=== PATIENT | female | born 1950 | race Asian ===

== ENCOUNTER 2019-10-01 11:32 | Inpatient (IN) | payer MEDICARE, OTHER ==
[~2019-10-01] VITALS: Ht 154.9 cm; Wt 71.2 kg
[2019-10-01 14:50] VITALS: BP 133/74
--- NOTE | 2019-10-01 14:50 | NUR ---
tele marketing intelligence analyst: admission direct admit this 69 year old female pt from [facility] with dx: syncope, uti. pt came in for positive influenza at [facility] per report. pt awake, a/ox4; kedar speaking only. daughter here to translate. s/p fall with small hematoma to right parietal scalp area per ct head report, unable to feel lump/bump at this time. neuro check wnl. pupils perlla at 3mm. denies ocasio, dizziness, n/v or any discomfort at this time. pt able to ambulate with steady gait. oriented to room and surroundings. vss. in no apparent distress noted. will continue to monitor. Addendum: 10/01/19 at 1557 by SHARLENE SHOOK MANAGER OF CUSTOMER BILLING place pt on tele sr=[id number].
--- NOTE | 2019-10-01 15:30 | NUR ---
tele mainspring strip inspector: notes nica (acnp) at bedside talking to pt and daughter at this time.
--- NOTE | 2019-10-01 15:45 | NUR ---
m/s hr analyst: notes late lunch provided. instructed to call for assistance. will continue to monitor.
[2019-10-01 16:00] VITALS: BP 133/74
[2019-10-01] MEDS ORDERED: ACETAMINOPHEN 325 MG TABLET PO PRN (16:00)
[2019-10-01] MEDS ORDERED: MORPHINE SULFATE INJ 2 MG/ML DISP.SYRIN IV PRN (16:00)
[2019-10-01] MEDS ORDERED: HYDROCODONE/APAP 5/325MG 1 EACH TABLET PO PRN (16:00)
[2019-10-01] MEDS ORDERED: ZOLPIDEM TARTRATE 5 MG TABLET PO PRN (16:00)
[2019-10-01] MEDS ORDERED: MAG HYDROX/AL HYDROX/SIMETH 30 ML UDC PO PRN (16:00)
[2019-10-01] MEDS ORDERED: ONDANSETRON HCL/PF 4 MG/2 ML VIAL IVP PRN (16:00)
[2019-10-01] MEDS ORDERED: MAGNESIUM HYDROXIDE 30 ML UDC PO PRN (16:00)
[2019-10-01] MEDS ORDERED: CEFTRIAXONE 1 G in IV D5W 50 ML IV SCH (16:00)
--- NOTE | 2019-10-01 16:00 | NUR ---
tele hot box spotter: notes both nostril mrsa suirvellance collected and place in ref. called lab to citrus picker specimen.
[2019-10-01] MEDS: IV 1/2NS 1000 ML 1,000 ML IV PRN (16:40)
[2019-10-01] MEDS: OSELTAMIVIR PHOSPHATE 75 MG CAPSULE PO SCH (16:49)
--- NOTE | 2019-10-01 18:00 | NUR ---
m/s inspector coated fabrics: notes troponin drawn at this time. no c/o dizziness, ocasio, or any discomfort. tele remains sr. needs attended. instructed to call for assistance. will continue to monitor.
[2019-10-01] MEDS: ENOXAPARIN SODIUM 40 MG/0.4 ML DISP.SYRIN SQ SCH (18:03)
--- NOTE | 2019-10-01 19:00 | NUR ---
m/s rug underlay machine operator: notes 2 family member visiting at this time.
--- NOTE | 2019-10-01 19:20 | NUR ---
tele basketballs and footballs reverser: notes bedside report given to meghan (rn) for continuity of care.
--- NOTE | 2019-10-01 19:57 | NUR ---
RN NOTES RECEIVED PATIENT AWAKE, ALERT ORIENTED X3-4. NO SIGNS OF ACUTE DISTRESS, SAFETY MEASURES IN PLACE, ASPIRATION PRECAUTION EMPHASIZED, CALL LIGHT WITHIN EASY REACH. FAMILY MEMBERS AT BEDSIDE, DENIES ANY PAIN OR DISCOMFORT, IV MIDLINE ACCESS ON HER RIGHT UPPER ARM INTACT AND PATENT. ALL NEEDS ANTICIPATED, WILL CONTINUE TO MONITOR ACCORDINGLY. Addendum: 10/02/19 at 0538 by INDER JASON RN 10/02/191956 IV SITE ACCESS CORRECTION: RN NOTES RECEIVED PATIENT AWAKE, ALERT ORIENTED X3-4. NO SIGNS OF ACUTE DISTRESS, SAFETY MEASURES IN PLACE, ASPIRATION PRECAUTION EMPHASIZED, CALL LIGHT WITHIN EASY REACH. FAMILY MEMBERS AT BEDSIDE, DENIES ANY PAIN OR DISCOMFORT, IV ON HER LEFT WRIST INTACT AND PATENT IVF INFUSING WELL. . ALL NEEDS ANTICIPATED, WILL CONTINUE TO MONITOR ACCORDINGLY.
[2019-10-01 20:00] VITALS: BP 142/73
[2019-10-02] VITALS (8 sets, daily range): BP systolic 109–146; BP diastolic 64–76
--- NOTE | 2019-10-02 06:30 | NUR ---
RN NOTES ALL NEEDS ATTENDED AND MET ABLE TO REST AND SLEPT AT INTERVALS. SAFETY MEASURES IN PLACE, CALL LIGHT WITHIN EASY REACH, ISOLATION PRECAUTION MAINTAINED, ASPIRATION PRECAUTION EMPHASIZED, DENIES ANY PAIN AT THIS TIME, WILL ENDORSE TO AM NURSE FOR CONTINUITY OF CARE.
--- NOTE | 2019-10-02 07:34 | NUR ---
MS/RN NOTES RECEIVED PATIENT LYING ON BED AWAKE. ALERT AND ORIENTED X4. DENIES PAIN AT THIS TIME. NO SOB NOTED. IVF OF 1/2 NS 1L AT 75ML/HR ON AND INFUSING WELL. SAFETY MEASURES IN PLACE, CALL LIGHT WITHIN EASY REACH, ISOLATION PRECAUTION MAINTAINED, ASPIRATION PRECAUTION EMPHASIZED. WILL CONTINUE TO MONITOR.
--- NOTE | 2019-10-02 07:39 | NUR ---
MS/RN OPENING NOTES RECEIVED PATIENT LYING ON BED AWAKE. ALERT AND ORIENTED X4. DENIES PAIN AT THIS TIME. NO SOB NOTED. IVF OF NS 1L 125ML/HR ON AND INFUSING WELL. SAFETY MEASURES IN PLACE, CALL LIGHT WITHIN EASY REACH, BED IN LOWEST POSITION, SIDE RAILS UP X2. WILL CONTINUE TO MONITOR Addendum: 10/02/19 at 1605 by JACQUE FLOWER RN ERROR
[2019-10-02 07:41] LABS: BASOPHILS % (AUTO) 0.8 % (0.0-2.0); EOSINOPHILS % (AUTO) 1.6 % (0.0-6.0); HEMATOCRIT 39 % (33-45); HEMOGLOBIN 12.8 g/dL (11.5-14.8); LYMPHOCYTES # (AUTO) 1.6 /CMM (0.8-4.8); LYMPHOCYTES % (AUTO) 45.2 % (20.0-44.0); MEAN CORPUSCULAR HGB CONC 33 g/dl (31.0-36.0); MEAN CORPUSCULAR VOLUME 93 fL (82-100); MONOCYTES # (AUTO) 0.4 /CMM (0.1-1.30); MONOCYTES % (AUTO) 11.7 % (2.0-12.0); NEUTROPHILS # (AUTO) 1.4 /CMM (1.8-8.9); NEUTROPHILS % (AUTO) 40.7 % (43.0-81.0); PLATELET COUNT (AUTO) 170 /CMM (150-450); WHITE BLOOD COUNT (AUTO) 3.5 K/uL (4.3-11.0)
[2019-10-02] MEDS: PANTOPRAZOLE 40 MG TABLET.DR PO SCH (07:53)
[2019-10-02] MEDS: IV 1/2NS 1000 ML 1,000 ML IV PRN (07:55)
[2019-10-02 08:00] LABS: ALBUMIN 2.8 g/dL (3.4-5.0); BILIRUBIN,DIRECT 0.1 mg/dL (0.0-0.2); BILIRUBIN,TOTAL 0.1 mg/dL (0.2-1.0); CALCIUM, SERUM 7.9 mg/dL (8.5-10.1); CREATININE 0.8 mg/dL (0.6-1.3); MAGNESIUM 1.8 mg/dL (1.8-2.4); PHOSPHORUS 3.1 mg/dL (2.5-4.9); POTASSIUM 3.9 mmol/L (3.5-5.1); TOTAL PROTEIN, SERUM 7.1 g/dL (6.4-8.2)
[2019-10-02 08:03] LABS: THYROID STIMULATING HORMONE 5.545 uIU/mL (0.358-3.74)
[2019-10-02] MEDS: OSELTAMIVIR PHOSPHATE 75 MG CAPSULE PO SCH ×2 (09:14→17:55)
[2019-10-02] MEDS: CEFTRIAXONE 1 G in IV D5W 50 ML IV SCH (09:15)
[2019-10-02] MEDS ORDERED: IV 1/2NS 1000 ML 1,000 ML IV PRN (09:57)
--- NOTE | 2019-10-02 18:57 | NUR ---
MS/RN CLOSING NOTES PATIENT LYING ON THE BED COMFORTABLY. PATIENT IS ALERT AND ORIENTED X4. RESPIRATIONS EVEN AND UNLABORED WITH EQUAL RISE AND FALL OF CHEST. DENIES ANY PAIN OR DISCOMFORT AT THIS TIME. IV SITE TO THE LEFT WRIST # 20 PATENT AND INTACT. IVF OF NS 1L AT 75ML/HR ON AND INFUSING WELL. NO REDNESS, NO INFILTRATION PRESENT. SEEN AND EXAMINED BY MD WITH ORDERS MADE AND CARRIED OUT. ALL DUE MEDS WAS GIVEN ORDERED, NO ADVERSE REACTIONS. ALL NEEDS WAS ATTENDED. SAFETY PRECAUTION IN PLACED. BED IN LOWEST POSITION SIDE RAILS UP X2. CALL LIGHT WITH IN REACH. WILL ENDORSED TO PATTERN GENERATOR OPERATOR FOR. SUNDAY.
--- NOTE | 2019-10-02 19:55 | NUR ---
RN NOTES RECEIVED PATIENT AWAKE ALERT ORIENTED X4, NO ACUTE SIGNS OF DISTRESS, BREATHING EVEN AND UNLABORED, IV ACCESS INTACT AND PATENT, IVF INFUSING WELL. SAFETY MEASURES INPLACE, ASPIRATION PRECAUTION EMPHASIZED, CALL LIGHT WITHIN EASY REACH, WILL CONTINUE TO MONITOR ACCORDINGLY.
[2019-10-02] MEDS: ENOXAPARIN SODIUM 40 MG/0.4 ML DISP.SYRIN SQ SCH (21:08)
--- NOTE | 2019-10-03 07:31 | NUR ---
MS/RN OPENING NOTES RECEIVED PATIENT LYING ON BED COMFORTABLY. PATIENT IS AWAKE AND ORIENTED X4. NO SIGNS OF DISTRESS. DENIES PAIN AT THIS TIME. NO APPARENT DISTRESS NOTED. SAFETY MEASURES IN PLACE, BED IN LOWEST POSITION SIDE RAILS UP X2. CALL LIGHT WITHIN REACH.WILL CONTINUE TO MONITOR.
[2019-10-03] MEDS: PANTOPRAZOLE 40 MG TABLET.DR PO SCH (07:37)
[2019-10-03 08:23] VITALS: BP 140/80
[2019-10-03] MEDS: OSELTAMIVIR PHOSPHATE 75 MG CAPSULE PO SCH (08:51)
[2019-10-03] MEDS: CEFTRIAXONE 1 G in IV D5W 50 ML IV SCH (10:23)
--- NOTE | 2019-10-03 13:41 | NUR ---
MS/RN NOTES PATIENT IS ALERT AND ORIENTED X4. DENIES ANY PAIN AT THIS TIME. IN ROOM AIR AND SATURATION IS AT 100%. RESPIRATION REGULAR AND UNLABORED. THE PATIENT IN NO APPARENT DISTRESS. SEEN AND EXAMINED BY MD WITH ORDERS MADE AND CARRIED OUT. ALL DUE MED WAS GIVEN ORDERED. PATIENT AND DAUGHTER WAS GIVEN DISCHARGED INSTRUCTIONS AND PATIENT AND DAUGHTER VERBALIZED UNDERSTANDING. BELONGINGS FORM AND DISCHARGED FORM WAS SIGN BY THE DAUGHTER. THE PATIENT LEFT IN STABLE CONDITION, ACCOMPANIED BY CHRISTINE THE DAUGHTER ON A PRIVATE CAR.
== END 2019-10-03 13:30 | disposition home or self-care (01) | DRG 74 ==
LOC: TELE 14:49 → MED 10-02 09:07
PROVIDERS: ADMIT Nurse Practitioner Acute Care; ATTEND Nurse Practitioner Acute Care
DX: G90.8 Other disorders of autonomic nervous system (principal); N39.0 Urinary tract infection, site not specified; E03.9 Hypothyroidism, unspecified; J10.1 Influenza due to other identified influenza virus with other respiratory manifestations; W18.30XA Fall on same level, unspecified, initial encounter; S00.03XA Contusion of scalp, initial encounter; Y92.89 Other specified places as the place of occurrence of the external cause; B96.89 Other specified bacterial agents as the cause of diseases classified elsewhere; Z68.29 Body mass index [BMI] 29.0-29.9, adult; E66.9 Obesity, unspecified
CPT/HCPCS: 36415; 71045-TC; 80053-TC; 80061-TC; 80076-TC; 83540-TC; 83735-TC; 84100-TC; 84439-TC; 84443-TC; 84484-TC; 85025-TC; 85730-TC; 87081-TC; 93307-TC; 93880-TC; 97116-TC; 97530-TC; G0378; J0696; J1650; J3490; J7060